=== PATIENT | female | born 1970 | race Caucasian/White ===

== ENCOUNTER 2018-11-22 14:28 | Outpatient (CLI) | payer OTHER ==
--- NOTE | 2018-11-22 15:21 | XRAY Report ---
Reason: ACUTE PAIN +EDEMA RT ANKLE Procedure Date: 11/22/2018 Accession Number: [id number] / [id number] Procedure: XR - Ankle 3 View RT CPT Code: FULL RESULT: EXAM: RIGHT ANKLE RADIOGRAPHY EXAM DATE: 11/22/2018 02:56 PM. CLINICAL HISTORY: Acute pain, positive edema, right ankle. COMPARISON: None. TECHNIQUE: 3 views. FINDINGS: Bones: Mild posterior calcaneal spurring and mild to moderate inferior calcaneal spurring. No fracture detected. Joints: Normal. No effusion. No subluxations. The ankle mortise is normally aligned. Soft Tissues: Mild soft tissue swelling is noted. IMPRESSION: Calcaneal spurring with no fracture or dislocation of the ankle. [facility]
== END 2018-11-22 14:29 | disposition home or self-care (01) ==
LOC: DI 14:28
PROVIDERS: ATTEND Podiatrist
DX: M77.31 Calcaneal spur, right foot (principal)

== ENCOUNTER 2019-01-17 07:42 | Outpatient (CLI) | payer OTHER ==
--- NOTE | 2019-01-17 15:38 | MRI Report ---
Reason: 6 WEEKS PAIN EDEMA POSTERIOR TIB TENDON R ANKLE Procedure Date: 01/17/2019 Accession Number: [id number] / [id number] Procedure: MRI - Ankle RT W/O CPT Code: FULL RESULT: EXAM: RIGHT ANKLE/HINDFOOT MRI WITHOUT CONTRAST EXAM DATE: 01/17/2019 08:55 AM. CLINICAL HISTORY: 6 weeks pain, edema posterior tibial tendon right ankle. COMPARISON: None. TECHNIQUE: Multiplanar, multisequence T1-weighted and fluid-sensitive sequences of the ankle/hindfoot without contrast. Other: None. FINDINGS: Bones: Spurring inferior calcaneal tuberosity. Articular Cartilage: Unremarkable. Ligaments: The anterior and posterior tibiofibular, anterior and posterior talofibular, and calcaneofibular ligaments are intact. The deep and superficial deltoid and spring ligaments are intact. Anterior Tendons: The tibialis anterior, extensor hallucis longus, and extensor digitorum longus tendons are unremarkable. Medial Tendons: Grade 1 partial tear distal posterior tibialis tendon. Proximal and distal posterior tibialis tenosynovitis. The flexor digitorum longus and flexor hallucis longus tendons are intact. Lateral Tendons: Mild peroneal tenosynovitis. Achilles Tendon: Mild fusiform enlargement mid Achilles tendon. Musculature: No edema or fatty atrophy. Other: No effusions. The contents of the sinus tarsi and tarsal tunnel are unremarkable. No plantar fasciitis. The subcutaneous tissues are unremarkable. IMPRESSION: 1. Fibrosing tenosynovitis proximal and distal posterior tibialis tendon with grade 1 partial tear distal posterior tibialis tendon. 2. Mild peroneal tenosynovitis. RADIA
== END 2019-01-17 07:43 | disposition home or self-care (01) ==
LOC: DI 07:42
PROVIDERS: ATTEND Podiatrist
DX: S96.811A Strain of other specified muscles and tendons at ankle and foot level, right foot, initial encounter (principal); M65.871 Other synovitis and tenosynovitis, right ankle and foot

== ENCOUNTER 2020-04-12 09:20 | Day surgery (SDC) | payer OTHER ==
[2020-04-12] MEDS ORDERED: MIDAZOLAM 2 MG/2 ML VIAL IVP ONE (09:21)
[2020-04-12] MEDS ORDERED: fentaNYL 250 MCG/5 ML VIAL IVP ONE (09:21)
[2020-04-12] MEDS ORDERED: LACTATED RINGERS 1,000 ML IV ONE ×2 (10:10→12:04)
[2020-04-12 12:15] VITALS: BP 106/73
== END 2020-04-12 09:21 | disposition home or self-care (01) ==
LOC: SDS 09:20
PROVIDERS: ATTEND Internal Medicine Gastroenterology
DX: Z12.11 Encounter for screening for malignant neoplasm of colon (principal); K57.30 Diverticulosis of large intestine without perforation or abscess without bleeding
CPT/HCPCS: 45378; J3010; J7120